=== PATIENT | female | born 1965 | race Caucasian/White ===

== ENCOUNTER → 2019-12-02 | Outpatient (CLI) | payer OTHER ==
[~2019-12-02] MED LIST: ASPI81TA59 PO; ATOR20TA58 PO; FERR236T2 PO; INSU100I11 SQ; INSU100V37 SQ; LEVO50TA5 PO; OMEG-152 PO; REPA2TAB7 PO; TAMS0.4C97 PO
== END | disposition home or self-care (01) ==
LOC: LAB 15:10
PROVIDERS: ATTEND Nurse Anesthetist, Certified Registered
DX: Z11.59 Encounter for screening for other viral diseases (principal)
CPT/HCPCS: C9803; U0003

== ENCOUNTER → 2019-12-07 | Day surgery (SDC) | payer OTHER ==
[~2019-12-07] MED LIST changes: +IPRATRPIUM/ALBUTEROL 0.5/2.5MG 3 ML NEBU. NEB PRN; +IV RINGERS SOLUTION,LACTATED 1,000 ML IV SCH; +ONDANSETRON PF 4 MG/2 ML VIAL. IV PRN; +PROPOFOL 10,000 MCG/ML (20ML) VIAL IV ONE
[2019-12-07 11:36] VITALS: BP 112/70
--- NOTE | 2019-12-09 15:08 | PATHOLOGY ---
[facility] Accession Number: [id number] . 01 Material submitted: . PART A: small bowel - SMALL BOWEL PART B: stomach - EROSIVE GASTRITIS . 02 Diagnosis: A. Small bowel biopsies: - Segments of gastroduodenal, duodenal, and small intestine mucosa showing focal mild chronic inflammation. . B. Gastric biopsies, gastric body: - Reactive gastropathy with superficial congestion, edema, and mild chronic inflammation. ([facility]:[place]; 12/09/2019) [facility] 12/09/2019 1424 Local . 02 Comment: Sections of the small bowel biopsy reveal segments of gastroduodenal, duodenal, and small intestine mucosa showing focal mild chronic inflammation. Where best oriented, the mucosal villi show no sprue-like changes or significant inflammatory changes. . Sections of the gastric biopsy reveal segments of gastric body mucosa showing focal foveolar hyperplasia with superficial edema, congestion, and mild chronic inflammation. A properly controlled immunoperoxidase stain for Helicobacter is negative for Helicobacter organisms. The findings are consistent with a reactive gastropathy. (JPM:[place]; 12/09/2019) . . Special stain performed: Immunoperoxidase stain for Helicobacter on B1 . 02 Electronically signed: . Aurelio Hernández MD, Pathologist NPI- [id number] . 01 Gross description: . A. The specimen is received in formalin labeled "Rafat, Ana, small bowel" and consists of multiple fragments of beltran tissue measuring 0.9 x 0.6 x 0.2 cm in aggregate which are entirely submitted in A1. . B. The specimen is received in formalin labeled "Rafat, Ana, erosive gastritis" and consists of multiple fragments of beltran tissue measuring 0.6 x 0.2 x 0.2 cm in aggregate which are entirely submitted in B1. ([facility]; 12/08/2019) JFQ/JFQ 12/08/2019 1707 Local . 02 Pathologist provided ICD-10: K29.50, K31.9 . 02 CPT . 705146, 476112, [id number] Specimen Comment: A courtesy copy of this report has been sent to [phone], [phone] Specimen Comment: [id number] Specimen Comment: Report sent to / DR MOSCOSO Specimen Comment: A duplicate report has been generated due to demographic updates. Performed at: 01 [facility] [address], [place] [id number] MD Bakari Jacobson MD Phone: [phone] Performed at: 02 [facility] [address] [place], [place] [id number] MD Aurelio Hernández MD Phone: [phone]
== END ==
LOC: SURG 08:56
PROVIDERS: ATTEND Internal Medicine Gastroenterology
DX: D64.9 Anemia, unspecified (principal); K29.50 Unspecified chronic gastritis without bleeding; K57.30 Diverticulosis of large intestine without perforation or abscess without bleeding; E11.9 Type 2 diabetes mellitus without complications; E03.9 Hypothyroidism, unspecified; Z79.84 Long term (current) use of oral hypoglycemic drugs; Z90.49 Acquired absence of other specified parts of digestive tract
CPT/HCPCS: 43239; 45378; 88305; 88342; J2704; J7120